=== PATIENT | female | born 1985 | race Caucasian/White ===

== ENCOUNTER 2017-08-29 02:21 | Emergency (ER) | payer MEDICAID ==
[~2017-08-29] VITALS: Ht 160 cm; Wt 75.0 kg
[~2017-08-29 02:21] MED LIST: ALBU6.7H INH; ZITH250T PO
[2017-08-29 02:24] VITALS: BP 148/80; PULSE 60; RESP 16; TEMP 98; O2SAT 100
[2017-08-29] MEDS ORDERED: METH10TA PO (02:36)
[2017-08-29] MEDS ORDERED: KETO2CRE TOPICAL (02:56)
--- NOTE | 2017-08-29 02:56 | PD ---
HPI Chief Complaint: Skin Problem Time Seen by Provider: 02:49 Travel History International Travel<30 days: No Contact w/Intl Traveler<30days: No Traveled to known affect area: No History of Present Illness HPI 2-year-old female presents to emergency department for evaluation of a rash in her bilateral axilla and in her bilateral inguinal folds. This is been there for 9 months. Patient was prescribed ketoconazole one point and this seemed to help it resolve however she ran out of that. She has not followed up with any new providers or dermatology. She denies any new exposures. No recent illnesses, fever, or chills. She has no other symptoms to report. PFSH Past Medical History Blood Disorders: No Anxiety: Yes Depression: Yes Cancer: Yes (PT STATES JUST DIAGNOSED WITH CERVICAL CA) Cardiovascular Problems: No Chemotherapy: No Cerebrovascular Accident: No Diabetes: No Diminished Hearing: No Genetic Disorder: No Genitourinary: No Headaches: Yes Immune Disorder: No Musculoskeletal: No Neurologic: Yes Psychiatric: Yes Reproductive: Yes (HPV) Respiratory: No Migraines: Yes Radiation Therapy: No Seizures: No Thyroid Disease: Yes (NODES ON THYROID) ?: Not LMP: 08/23/17 : 4 Para: 3 Miscarriage: 1 : 0 Ectopic : Yes (LAPROSCOPIC REPAIR) Ovarian Cysts: Yes (POLYCYSTIC OVARIAN) Past Surgical History Gynecologic Surgery: Yes (LAPORSCOPIC SURGERY FOR ECTOPIC PREG.) Other Surgery: No Social History Alcohol Use: No Tobacco Use: Yes (2 CIGARS DAILY) Substance Use: Yes (XANAX AND MARIJUAN) Allergies-Medications (Allergen,Severity, Reaction): Coded Allergies: metronidazole (Unverified Allergy, Severe, RASH, 08/29/17) Reported Meds & Prescriptions Reported Meds & Active Scripts Active Ketoconazole Topical 2% Cream 1 Applic TOPICAL BID Reported Methadone (Methadone HCl) 10 Mg Tab 60 Mg PO DAILY Review of Systems Except as stated in HPI: all other systems reviewed are Neg Physical Exam Narrative GENERAL: Well-nourished, well-developed female patient, in no acute distress. SKIN: Focused skin assessment warm/dry. Well-demarcated blanchable erythematous rash bilateral axilla and inguinal folds. No pustule or vesicle formation. HEAD: Normocephalic. EYES: No scleral icterus. No injection or drainage. NECK: Supple, trachea midline. No JVD or lymphadenopathy. CARDIOVASCULAR: Regular rate and rhythm without murmurs, gallops, or rubs. RESPIRATORY: Breath sounds equal bilaterally. No accessory muscle use. GASTROINTESTINAL: Abdomen soft, non-tender, nondistended. MUSCULOSKELETAL: No cyanosis, or edema. BACK: Nontender without obvious deformity. No CVA tenderness. Data Data Last Documented VS Vital Signs Date Time Temp Pulse Resp B/P (MAP) Pulse Ox O2 Delivery O2 Flow Rate FiO2 08/29/17 03:02 08/29/17 02:24 98.0 60 16 100 Room Air Orders Orders Ed Discharge Order (08/29/17 02:57) MDM Medical Decision Making Medical Screen Exam Complete: Yes Emergency Medical Condition: Yes Medical Record Reviewed: Yes Differential Diagnosis Fungal infection versus Angelica intertrigo versus contact dermatitis versus folliculitis Narrative Course 32-year-old female presents to emergency department for evaluation of a rash in her bilateral axilla and inguinal folds. This is been occurring for the last 9 months. Patient appears well. Appearance is consistent with a Angelica rash, however I have encouraged follow-up with dermatology for further evaluation of this. Patient will be given prescription for acute consult. She's on care and agrees to return immediately with any acute worsening symptoms. Diagnosis Primary Impression: Candidal intertrigo Referrals: Campaign Analyst Primary Care Physician Patient Instructions: General Instructions, Skin Yeast Infection (ED) Additional Instructions: Follow up with a primary care provider Seek dermatology evaluation Return immediately to the emergency department with any acute worsening of symptoms Med/Other Pt SpecificInfo: Prescription(s) given Scripts Ketoconazole Topical (Ketoconazole Topical) 2% Cream 1 APPLIC TOPICAL BID for Fungal Infection, #15 GM 2 Refills Prov: Bre Raza 08/29/17 Disposition: 01 DISCHARGE HOME Condition: Stable Bre Raza Aug 29, 2017 02:56
== END 2017-08-29 03:04 | disposition home or self-care (01) ==
LOC: NEPD 02:21
DX: L30.4 Erythema intertrigo (principal); F41.9 Anxiety disorder, unspecified; F32.9 Major depressive disorder, single episode, unspecified; E07.9 Disorder of thyroid, unspecified; F17.290 Nicotine dependence, other tobacco product, uncomplicated; Z79.899 Other long term (current) drug therapy; Z88.8 Allergy status to other drugs, medicaments and biological substances
CPT/HCPCS: 99283

== ENCOUNTER 2017-10-02 21:22 | Emergency (ER) | payer MEDICAID ==
[~2017-10-02 21:22] MED LIST changes: -ALBU6.7H INH; +KETO2CRE TOPICAL; +METH10TA PO; -ZITH250T PO
[2017-10-02 21:30] VITALS: BP 106/55; PULSE 80; RESP 18; TEMP 98.9; O2SAT 96
--- NOTE | 2017-10-02 21:33 | PD ---
HPI Chief Complaint: N/V Time Seen by Provider: 21:26 Travel History International Travel<30 days: No Contact w/Intl Traveler<30days: No Traveled to known affect area: No History of Present Illness HPI PATIENT IS CURRENTLY UNDER REHAB/DETOX PROCESS AND IS ON XANAX AND METHADONE. PATIENT DEVELOPED SUDDEN ONSET NAUSEA, WHICH WAS PARITALLY RELIEVED BY ZOFRAN GIVEN BY EMS. PATIENT AT NO POINT C/O ACTUAL PAIN ANYWHERE (SPECIFICALLY DAILEY/CP/ ABDPAIN/BACKPAIN). ALL:FLAGYL PMHX:PCOS, ECTOPIC PER PATIENT PSHX:DENIES PFSH Past Medical History Blood Disorders: No Anxiety: Yes Depression: Yes Cancer: Yes (PT STATES JUST DIAGNOSED WITH CERVICAL CA) Cardiovascular Problems: No Chemotherapy: No Cerebrovascular Accident: No Diabetes: No Diminished Hearing: No Genetic Disorder: No Genitourinary: No Headaches: Yes Immune Disorder: No Musculoskeletal: No Neurologic: Yes Psychiatric: Yes Reproductive: Yes (HPV) Respiratory: No Migraines: Yes Radiation Therapy: No Seizures: No Thyroid Disease: Yes (NODES ON THYROID) : 4 Para: 3 Miscarriage: 1 : 0 Ectopic : Yes (LAPROSCOPIC REPAIR) Ovarian Cysts: Yes (POLYCYSTIC OVARIAN) Past Surgical History Gynecologic Surgery: Yes (LAPORSCOPIC SURGERY FOR ECTOPIC PREG.) Other Surgery: No Social History Alcohol Use: No Tobacco Use: Yes (2 CIGARS DAILY) Substance Use: Yes (XANAX AND MARIJUAN) Allergies-Medications (Allergen,Severity, Reaction): Coded Allergies: metronidazole (Unverified Allergy, Severe, RASH, 10/02/17) Reported Meds & Prescriptions Reported Meds & Active Scripts Active Reported Doxycycline Hyclate 100 Mg Cap 100 Mg PO BID Methadone (Methadone HCl) 10 Mg Tab 60 Mg PO DAILY Review of Systems General / Constitutional: No: Fever Eyes: No: Visual changes HENT: No: Headaches Cardiovascular: No: Chest Pain or Discomfort Respiratory: No: Shortness of Breath Gastrointestinal: Positive: Nausea, Vomiting Genitourinary: No: Dysuria Musculoskeletal: No: Pain Skin: No Rash Neurologic: No: Weakness Psychiatric: No: Depression Endocrine: No: Polydipsia Hematologic/Lymphatic: No: Easy Bruising Physical Exam Narrative GENERAL: SKIN: Warm and dry. HEAD: Atraumatic. Normocephalic. EYES: Pupils equal and round. No scleral icterus. No injection or drainage. ENT: No nasal bleeding or discharge. Mucous membranes pink and moist. NECK: Trachea midline. No JVD. CARDIOVASCULAR: Regular rate and rhythm. RESPIRATORY: No accessory muscle use. Clear to auscultation. Breath sounds equal bilaterally. GASTROINTESTINAL: Abdomen soft, non-tender, nondistended. MUSCULOSKELETAL: Extremities without clubbing, cyanosis, or edema. No obvious deformities. NEUROLOGICAL: Awake and alert. No obvious cranial nerve deficits. Motor grossly within normal limits. Five out of 5 muscle strength in the arms and legs. Normal speech. PSYCHIATRIC: Appropriate mood and affect; insight and judgment normal. Data Data Last Documented VS Vital Signs Date Time Temp Pulse Resp B/P (MAP) Pulse Ox O2 Delivery O2 Flow Rate FiO2 10/02/17 21:56 98 Room Air 10/02/17 21:30 98.9 80 18 Orders Orders Beta Hcg (Quant/Titer) (10/02/17 21:33) Complete Blood Count With Diff (10/02/17 21:33) Comprehensive Metabolic Panel (10/02/17 21:33) Lipase (10/02/17 21:33) Iv Access Insert/Monitor (10/02/17 21:33) Ecg Monitoring (10/02/17 21:33) Oximetry (10/02/17 21:33) NPO (10/02/17 21:33) Sodium Chloride 0.9% Flush (Ns Flush) (10/02/17 21:45) Sodium Chlor 0.9% 1000 Ml Inj (Ns 1000 M (10/02/17 21:45) Labs Laboratory Tests Test 10/02/17 21:00 White Blood Count 17.2 TH/MM3 Red Blood Count 4.41 MIL/MM3 Hemoglobin 13.7 GM/DL Hematocrit 38.8 % Mean Corpuscular Volume 88.0 FL Mean Corpuscular Hemoglobin 31.0 PG Mean Corpuscular Hemoglobin Concent 35.2 % Red Cell Distribution Width 13.5 % Platelet Count 301 TH/MM3 Mean Platelet Volume 6.9 FL Neutrophils (%) (Auto) 86.7 % Lymphocytes (%) (Auto) 8.4 % Monocytes (%) (Auto) 4.5 % Eosinophils (%) (Auto) 0.3 % Basophils (%) (Auto) 0.1 % Neutrophils # (Auto) 14.9 TH/MM3 Lymphocytes # (Auto) 1.4 TH/MM3 Monocytes # (Auto) 0.8 TH/MM3 Eosinophils # (Auto) 0.1 TH/MM3 Basophils # (Auto) 0.0 TH/MM3 CBC Comment DIFF FINAL Differential Comment Blood Urea Nitrogen 13 MG/DL Creatinine 0.74 MG/DL Random Glucose 76 MG/DL Total Protein 7.4 GM/DL Albumin 3.8 GM/DL Calcium Level 8.9 MG/DL Alkaline Phosphatase 68 U/L Aspartate Amino Transf (AST/SGOT) 35 U/L Alanine Aminotransferase (ALT/SGPT) 22 U/L Total Bilirubin 0.2 MG/DL Sodium Level 141 MEQ/L Potassium Level 3.6 MEQ/L Chloride Level 105 MEQ/L Carbon Dioxide Level 29.1 MEQ/L Anion Gap 7 MEQ/L Estimat Glomerular Filtration Rate 90 ML/MIN Lipase 173 U/L Human Chorionic Gonadotropin, Quant LESS THAN 1 MIU/ML MDM Medical Decision Making Medical Screen Exam Complete: Yes Emergency Medical Condition: Yes Medical Record Reviewed: Yes Differential Diagnosis GASTRITIS V BILIARY COLIC V RENAL COLIC V ELECTROLYTE ABNL V PANCREATITIS Narrative Course POSSIBLE REACTIVE LEUKOCYTOSIS NOTED, NORMAL LIPASE, NORMAL LFT'S , NORMAL ELECTROLYTES, PATIENT DID NOT PROVIDE US WITH A URINE SAMPLE. PATIENT FELT WELL ENOUGH TO GO HOME Diagnosis Primary Impression: NAUSEA RESOLVED Patient Instructions: Acute Nausea and Vomiting (ED), General Instructions Disposition: 01 DISCHARGE HOME Condition: Stable Juan M Valadez MD Oct 02, 2017 21:33
[2017-10-02] MEDS ORDERED: SODIUM CHLORIDE 0.9% FLUSH 10 ML FLUSH IV FLUSH PRN (21:45)
[2017-10-02] MEDS ORDERED: SODIUM CHLOR 0.9% 1000 ML INJ 1,000 ML IV ONE (21:45)
[2017-10-02 21:56] VITALS: O2SAT 98
[2017-10-02 22:14] LABS: AUTOMATED NEUTROPHIL # 14.9 TH/MM3 (1.8-7.7); BASOPHIL % 0.1 % (0.0-2.0); EOSINOPHIL # 0.1 TH/MM3 (0-0.4); EOSINOPHIL % 0.3 % (0.0-4.0); HEMATOCRIT 38.8 % (35.0-46.0); HEMOGLOBIN 13.7 GM/DL (11.6-15.3); LYMPH % 8.4 % (9.0-44.0); LYMPHOCYTE # 1.4 TH/MM3 (1.0-4.8); MEAN CORPUSCULAR HGB CONC 35.2 % (32.0-36.0); MEAN PLATELET VOLUME 6.9 FL (7.0-11.0); MONO % 4.5 % (0.0-8.0); MONOCYTE # 0.8 TH/MM3 (0-0.9); NEUT % 86.7 % (16.0-70.0); PLATELET COUNT 301 TH/MM3 (150-450); RED BLOOD COUNT 4.41 MIL/MM3 (4.00-5.30); RED CELL DISTRIBUTION WIDTH 13.5 % (11.6-17.2); WHITE BLOOD COUNT 17.2 TH/MM3 (4.0-11.0)
[2017-10-02] MEDS ORDERED: DOXY100C PO (22:29)
[2017-10-02 22:36] LABS: ALBUMIN 3.8 GM/DL (3.4-5.0); ALT (GPT) 22 U/L (10-53); AST (GOT) 35 U/L (15-37); BICARBONATE 29.1 MEQ/L (21.0-32.0); BLOOD UREA NITROGEN 13 MG/DL (7-18); CALCIUM 8.9 MG/DL (8.5-10.1); CHLORIDE 105 MEQ/L (98-107); CREATININE 0.74 MG/DL (0.50-1.00); GLOMERULAR FILTRATION RATE 90 ML/MIN (>89); GLUCOSE,RANDOM 76 MG/DL (74-106); SODIUM (NA) 141 MEQ/L (136-145)
[2017-10-02 22:41] LABS: ALKALINE PHOSPHATASE 68 U/L (45-117); TOTAL BILIRUBIN ADULT 0.2 MG/DL (0.2-1.0); TOTAL PROTEIN 7.4 GM/DL (6.4-8.2)
[2017-10-02] MEDS ORDERED: ZOFR4TAB3 SL (23:42)
== END 2017-10-03 | disposition home or self-care (01) ==
LOC: NEPD 21:22
DX: R11.2 Nausea with vomiting, unspecified (principal); F12.10 Cannabis abuse, uncomplicated; F19.90 Other psychoactive substance use, unspecified, uncomplicated; Z72.0 Tobacco use
CPT/HCPCS: 80053; 83690; 84702; 85025; 96360; 99284; J7030